=== PATIENT | female | born 2005 ===

== ENCOUNTER 2024-04-20 20:26 | Emergency (ER) | payer OTHER, BC ==
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
== END 2024-04-21 00:10 | disposition home or self-care (01) ==
LOC: EC 20:26
CPT/HCPCS: 99283